=== PATIENT | male | born 1975 | race Caucasian/White ===

== ENCOUNTER 2022-04-11 08:40 | Outpatient (CLI) | payer BC, SELFPAY ==
--- NOTE | 2022-04-11 09:53 | W.ANESCHARGE ---
Anesthesia Charges Start Date/Time Anesthesia Start Date: 04/11/22 Anesthesia Start Time: 09:25 Stop Date/Time Anesthesia Stop Date: 04/11/22 Anesthesia Stop Time: 09:50 Summary Emergency: No
--- NOTE | 2022-04-11 14:33 | W.ANESCHARGE ---
Anesthesia Charges Start Date/Time Anesthesia Start Date: 04/11/22 Anesthesia Start Time: 09:25 Stop Date/Time Anesthesia Stop Date: 04/11/22 Anesthesia Stop Time: 09:50 Summary Emergency: No
== END 2022-04-11 08:41 | disposition home or self-care (01) ==
LOC: OP CLINIC 08:43
PROVIDERS: PCP Family Medicine; Visit Provider Internal Medicine Gastroenterology
DX: Z12.11 Encounter for screening for malignant neoplasm of colon (principal)
CPT/HCPCS: 45380; 811; 88305; J2704